=== PATIENT | male | born 1980 | race American Indian/Alaskan Native ===

== ENCOUNTER 2020-09-10 11:51 | Emergency (ER) | payer SELFPAY ==
[2020-09-10 12:59] VITALS: BP 174/112
[2020-09-10] MEDS ORDERED: hydroCHLOROthiazide 25 MG TAB PO ONE (13:30)
[2020-09-10] MEDS ORDERED: LISINOPRIL 20 MG TAB PO ONE (13:30)
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
== END 2020-09-10 13:36 | disposition home or self-care (01) ==
LOC: ED 11:51
DX: I10 Essential (primary) hypertension (principal); F17.200 Nicotine dependence, unspecified, uncomplicated; Z76.0 Encounter for issue of repeat prescription; Z79.899 Other long term (current) drug therapy; Z90.49 Acquired absence of other specified parts of digestive tract
CPT/HCPCS: 99281